=== PATIENT | female | born 1975 | race Caucasian/White ===

== ENCOUNTER 2017-11-19 23:01 | Emergency (ER) | payer OTHER ==
[~2017-11-19] VITALS: Ht 167.6 cm; Wt 57.5 kg
[2017-11-19 23:07] VITALS: TEMP 36.7; Ht 167.6 cm; Wt 57.5 kg
[2017-11-19] MEDS ORDERED: ONDANSETRON INJ 2 MG/ML 2 ML VIAL IV STA (23:25)
[2017-11-19] MEDS ORDERED: FLUO40CA8 PO (23:28)
[2017-11-19] MEDS ORDERED: LORA-741 PO (23:29)
[2017-11-19] MEDS ORDERED: FERR1TAB13 PO (23:30)
[2017-11-19] MEDS ORDERED: FENTANYL CITRATE INJ 50 MCG/1 ML 2 ML VIAL IV ONE (23:30)
[2017-11-19] MEDS ORDERED: ACET-1311 PO (23:31)
[2017-11-19] MEDS ORDERED: MELATAB2 PO (23:31)
[2017-11-20] MEDS ORDERED: XYLOCAINE 1%/SOD BICARB 20 ML VIAL INFIL ONE (00:15)
[2017-11-20] MEDS ORDERED: BUPIVACAINE 0.5 % 5 MG/1 ML MPF 30ML VIAL INFIL ONE (00:15)
[2017-11-20] MEDS ORDERED: FENTANYL CITRATE INJ 50 MCG/1 ML 2 ML VIAL IV ONE (00:30)
[2017-11-20] MEDS ORDERED: HYDR-5688 PO (02:55)
[2017-11-20] MEDS ORDERED: NORCO 5/325MG HOME PACK PO ONE (03:00)
[2017-11-20 03:15] VITALS: BP 162/90; PULSE 78; O2SAT 100
--- NOTE | 2017-11-20 07:13 | DIAGNOSTIC IMAGING REPORT ---
R WRIST MIN 3 VIEWS ROUTINE CLINICAL HISTORY: Right wrist fracture. COMPARISON: None FINDINGS: Note is made of a markedly displaced, comminuted and angulated distal right radial fracture. There is dorsal tilt of the distal component consistent with a Colles' fracture. There is intra-articular extension. There is no distal right ulnar fracture. No carpal bone fracture is identified IMPRESSION: Markedly displaced, comminuted and angulated distal right radial fracture consistent with a Colles' fracture. Electronically signed by: Harvey Smith M.D. 11/20/2017 7:12 AM Dictated Date/Time: 11/20/2017 7:10 AM
--- NOTE | 2017-11-20 07:55 | ORTHOPEDIC CONSULTATION ---
DATE OF CONSULTATION: 11/20/2017 HISTORY OF PRESENT ILLNESS: This is a 42-year-old right-hand dominant female who was at a rollerskating constitution party, was rollerskating to a [employer] and fell on her outstretched right upper extremity. She had immediate pain and deformity of the right wrist. She was then transported to [facility], radiographs and evaluation was performed by the Emergency Department physician, noting obvious deformity and pain with some numbness and tingling of the first 3 digits. Consultation was then made to orthopedics. She had no loss of consciousness. No head or neck injury or trauma. PAST MEDICAL HISTORY: Depression, anxiety, sleep disturbance. PAST SURGICAL HISTORY: Noncontributory. ALLERGIES: ANTI-INFLAMMATORIES WITH GASTRIC UPSET. MEDICATIONS: Tylenol 325 mg 2 p.o. q. 6 hours p.r.n. pain, ferrous sulfate 650 mg p.o. daily, Prozac 40 mg p.o. daily, Ativan 0.5 mg p.o. at bedtime and melatonin 5 mg p.o. at bedtime. SOCIAL HISTORY: She denies tobacco or drug use. Drinks occasionally. She is and she is a clinical specialty rep. PHYSICAL EXAMINATION: GENERAL: This is a well-nourished, well-hydrated 42-year-old female who is lying supine in the hospital transfer cart. She is alert and oriented x3. Speech clear and fluent. Affect is appropriate. EXTREMITIES: Examination of right upper extremity demonstrates a box splint right upper extremity with obvious dinner fork deformity right distal radius. Skin is warm, dry and intact. Radial pulses 2/4 and palpable. Fingers are pink and warm with cap refill less than 2 seconds. She has minor tingling to the thumb, second digit and third digit. Active and passive range of motion are intact to the fingers. Limited range of motion of the wrist due to pain and guarding. Radiographs demonstrate a dorsally angulated fracture of the distal radius, extraarticular, Colles-type fracture measuring approximately 45-50 degrees of dorsal angulation. There is no fracture of the distal ulna appreciated. IMPRESSION: Right dorsally angulated, minimally displaced distal radius fracture, extraarticular, with no fracture of the distal ulna, status post fall. RECOMMENDATION: Minor sedation with IV fentanyl, hematoma block with 1% lidocaine plain, closed reduction and sugar-tong plaster splinting. The patient will follow up within the next week for scheduling for likely need for surgery. Discussed the care plan with the patient, the patient gave verbal understanding. PROCEDURE: After verbal consent was given by the patient, the patient underwent sterile prep and local injection of 1% lidocaine, approximately 10 mL into the right distal radius fracture site. She tolerated it well and underwent placement of finger trap traction with approximately 14 pounds counter balance weight to the brachium. She underwent gentle reduction maneuver with near anatomic reduction of the distal radius. A sugar-tong plaster splint was then applied, overwrapped with an Cholo wrap with appropriate orthopedic molding applied. The patient tolerated the procedure well. Post-reduction radiographs were obtained. The patient was then discharged home in stable condition. The patient is to follow up with Dr. Christianson within the next week for close orthopedic followup.
--- NOTE | 2017-11-20 09:09 | DIAGNOSTIC IMAGING REPORT ---
WRIST 2 VIEW CLINICAL HISTORY: POST REDUCTION COMPARISON: Right wrist radiographs November 19, 2017. FINDINGS: Fine details obscured by overlying cast. A distal right radial fracture is noted. Fracture alignment has significantly improved since prereduction radiographs. No distal right ulnar fracture is present. IMPRESSION: Significant improvement in alignment of the distal right radial fracture status post reduction. Electronically signed by: Harvey Smith M.D. 11/20/2017 9:08 AM Dictated Date/Time: 11/20/2017 9:07 AM
--- NOTE | 2017-11-21 00:02 | EMERGENCY ROOM VISIT NOTE ---
History First contact with patient: 23:10 Chief Complaint: WRIST PAIN Stated Complaint: R WRIST INJURY History of Present Illness The patient is a 42 year old female who presents to the Emergency Room with complaints of right wrist injury that occurred about 30 minutes prior to arrival. The patient was roller skating this evening, when she slipped, and fell on outstretched hand. The patient has obvious deformity of the right wrist. She is complaining of some numbness to the first 3 digits of the right hand. She is right-hand dominant. The patient has not had previous injury to this wrist. She has not taken anything [id number] for her discomfort. She does have a past history of gastric bypass and is not able to take NSAIDs. She rates her current discomfort a 4/10 that worsens with movement. She does not have discomfort into the right elbow or shoulder. No head or neck pain. No other injuries noted. Her last meal was roughly 7 hours ago. Review of Systems More than 10 systems were reviewed and otherwise negative with the exception of history of present illness. Past Medical/Surgical History History gastric bypass Family History No pertinent family history Social History Smoking Status: Never Smoker Housing Status: lives with family Current/Historical Medications Scheduled Ferrous Sulfate ( Ferrous Sulfate), 650 MG PO DAILY Fluoxetine (Prozac), 40 MG PO DAILY Lorazepam (Ativan), 0.5 MG PO HS Melatonin (Melatonin Maximum Strengt), 5 MG PO HS Scheduled PRN Acetaminophen (Tylenol), 650 MG PO DIRECTED PRN for Pain or Fever Hydrocodone/Acetaminophen 5MG/325MG (B[place]lor 5MG/325MG), 1-2 TABLET PO Q6 PRN for Pain Physical Exam Vital Signs Date Time Temp Pulse Resp B/P (MAP) Pulse Ox O2 Delivery O2 Flow Rate FiO2 11/20/17 03:15 78 16 162/90 100 11/20/17 01:35 87 16 169/109 100 Room Air 11/19/17 23:07 36.7 67 20 156/100 100 Room Air Physical Exam VITALS: Vitals are noted on the nurse's note and reviewed by myself. Vital signs stable. GENERAL: Well-developed, well-nourished, white female who appears in moderate discomfort secondary to her injury. NECK: Supple without nuchal rigidity. No lymphadenopathy. No thyromegaly. Cervical spine is nontender. HEART: Regular rate and rhythm without murmurs gallops or rubs. LUNGS: Clear to auscultation bilaterally without wheezes, rales or rhonchi. No retractions or accessory muscle use. MUSCULOSKELETAL: Obvious deformity appreciated of the right wrist without blood or bleeding. 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 Mildly decreased sensorium to the right first, second, and third digits. No other injuries noted. NEURO: Patient was alert and oriented to person place and time. CN II through XII grossly intact. Medical Decision & Procedures ER Provider Diagnostic Interpretation: R WRIST MIN 3 VIEWS ROUTINE CLINICAL HISTORY: Right wrist fracture. COMPARISON: None FINDINGS: Note is made of a markedly displaced, comminuted and angulated distal right radial fracture. There is dorsal tilt of the distal component consistent with a Colles' fracture. There is intra-articular extension. There is no distal right ulnar fracture. No carpal bone fracture is identified IMPRESSION: Markedly displaced, comminuted and angulated distal right radial fracture consistent with a Colles' fracture. WRIST 2 VIEW CLINICAL HISTORY: POST REDUCTION COMPARISON: Right wrist radiographs November 19, 2017. FINDINGS: Fine details obscured by overlying cast. A distal right radial fracture is noted. Fracture alignment has significantly improved since prereduction radiographs. No distal right ulnar fracture is present. IMPRESSION: Significant improvement in alignment of the distal right radial fracture status post reduction. Medications Administered Medications (Trade) Dose Ordered Sig/Cheo Route Start Time Stop Time Status Last Admin Dose Admin Fentanyl Citrate (Fentanyl Inj) 50 mcg NOW ONCE IV 11/19/17 23:30 11/19/17 23:31 DC 11/19/17 23:53 50 MCG Ondansetron HCl (Zofran Inj) 4 mg NOW STAT IV 11/19/17 23:25 11/19/17 23:27 DC 11/19/17 23:53 4 MG Fentanyl Citrate (Fentanyl Inj) 50 mcg NOW ONCE IV 11/20/17 00:30 11/20/17 00:31 DC 11/20/17 00:39 50 MCG Acetaminophen/ Hydrocodone Bitart (B[place] 5/325mg Home Pack) 1 homepack UD ONCE PO 11/20/17 03:00 11/20/17 03:01 DC 11/20/17 02:59 1 HOMEPACK ED Course Physical exam and history were performed. Nursing notes, EMR, and Medication List were personally reviewed. Patient appears to have suffered a mechanical fall while roller skating this evening. She has obvious deformity to the right wrist. IV access was established and patient was given fentanyl. X-rays were performed and show a Colles' fracture. The case was discussed with my attending physician, Dr. Vincent. We elected to consult orthopedics due to the fracture and numbness the patient is experiencing. Dr. Christianson did come into the department to evaluate the patient. He ultimately performed a hematoma block with splinting. Repeat x-ray shows significant improvement of the alignment of the fracture. Please see Dr. Christianson's dictation for specifics regarding his procedure. Overall the patient appears well for discharge home. She had much improvement of her discomfort after reduction. She stated that the numbness resolved after the reduction. The patient will be given a course of Vicodin for pain control, and an arm sling. She is to follow with [facility] on Tuesday and was otherwise invited back to the ER for any new, worsening, or concerning symptoms. The chart was completed utilizing [employer] Speech Voice Recognition Software. Grammatical errors, random word insertions, pronoun errors, and incomplete sentences are an occasional consequence of this system due to software limitations, ambient noise, and hardware issues. Any formal questions or concerns about the content, text, or information contained within the body of this dictation should be directly addressed to the provider for clarification. . Medical Decision Differential diagnosis includes, but is not limited to: Sprain, strain, fracture , dislocation, subluxation, contusion, and others Impression Primary Impression: Fracture of right wrist Departure Information Dispostion Home / Self-Care Condition GOOD Prescriptions Hydrocodone/Acetaminophen 5MG/325MG (Batchelor 5MG/325MG) Tab 1-2 TABLET PO Q6 Y for Pain, #24 TAB For Initial Treatment Prov: Kush Tran PA-C 11/20/17 Referrals Dane Christianson D.O. Forms HOME CARE DOCUMENTATION FORM, IMPORTANT VISIT INFORMATION Patient Instructions [facility], ED Fx Wrist General, ED Compartment Syndrome At Risk For, ED RICE Additional Instructions You were seen and evaluated today on an emergency basis only. This is not a substitute for, or an effort to provide, complete comprehensive medical care. It is not possible to recognize and treat all injuries or illnesses in a single emergency department visit. For this reason it is recommended that you followup with [facility] , Dr. Christianson's office, by telephone Tuesday to make your appointment on Tuesday. Let the office know that you saw Dr. Christianson in the emergency department to help facilitate the Tuesday appointment. Batchelor (hydrocodone/acetaminophen) 5/325 mg ONE or TWO every 6 hours as needed for worsening breakthrough pain. Do not drink or drive on [place]. This medication will likely make you tired. Do not take Bat[place] and Tylenol at the same time as both contain acetaminophen. Bat[place]lor may cause constipation. You may wish to take an [id number] stool softener like Colace if this occurs. Do not your splint wet Use your arm sling for comfort You are welcome to return to the emergency department anytime with new, worsening, or concerning symptoms.
== END 2017-11-20 03:19 | disposition home or self-care (01) ==
LOC: C.EDB 23:05
DX: S52.531A Colles' fracture of right radius, initial encounter for closed fracture (principal); V00.121A Fall from non-in-line roller-skates, initial encounter; Y93.51 Activity, roller skating (inline) and skateboarding; F41.8 Other specified anxiety disorders; Z88.8 Allergy status to other drugs, medicaments and biological substances

== ENCOUNTER → 2017-11-24 | Outpatient (CLI) | payer OTHER ==
[~2017-11-24] MED LIST: ACET-1311 PO; FERR1TAB13 PO; FLUO40CA8 PO; HYDR-5688 PO; LORA-741 PO; MELATAB2 PO
--- NOTE | 2017-11-24 08:42 | DIAGNOSTIC IMAGING REPORT ---
R UPPER EXTREMITY WITHOUT CT DOSE: 60.24 mGycm HISTORY: Fracture R WRIST FX TECHNIQUE: Multiaxial CT images of the right wrist were performed and reformatted in the sagittal and coronal plane without the use of contrast. A dose lowering technique was utilized adhering to the principles of ALARA. COMPARISON: Routine images 11/19 and 11/20/2017 FINDINGS: Comminuted fracture distal radial metaphysis. Fracture extends to the central as well as a dorsal articular surface. These hairline extension is to the articular surface are nondisplaced. Fracture otherwise is comminuted and involves primarily the distal radial metaphysis. Bony alignment is considered anatomic. There is only slight displacement. There is no significant impaction. Alignment of the radius with the carpal bones appears to be anatomic. No additional acute bony abnormality is present. Moderate soft tissue edematous changes present. There is a very small orthogonal heron like component of the bone overlying the distal radial metaphysis best seen on sagittal reconstructions 39. Study is again negative for dislocation. IMPRESSION: 1. Comminuted minimally impacted fracture metaphysis distal radius. 2. Bone alignment overall is anatomic with no significant distraction. 3. Fracture has hairline nondisplaced extensions to the mid and dorsal lateral aspect of the radius 4. Normal alignment between the distal radius and carpal bones with no additional acute bony abnormality. The above report was generated using voice recognition software. It may contain grammatical, syntax or spelling errors. Electronically signed by: Dimitry Pinedo M.D. 11/24/2017 8:40 AM Dictated Date/Time: 11/24/2017 8:34 AM
== END | disposition home or self-care (01) ==
LOC: C.CTS 08:07
PROVIDERS: ATTEND Orthopaedic Surgery Sports Medicine
DX: S52.501A Unspecified fracture of the lower end of right radius, initial encounter for closed fracture (principal); X58.XXXA Exposure to other specified factors, initial encounter